=== PATIENT | female | born 1980 | race African-American/Black ===

== ENCOUNTER 2022-09-17 14:14 | Emergency (ER) | payer SELFPAY ==
[~2022-09-17] VITALS: Ht 154.9 cm; Wt 45.0 kg
[2022-09-17 14:21] VITALS: BP 110/70; PULSE 92; RESP 16; TEMP 97.8; O2SAT 98
== END 2022-09-17 15:46 | disposition left against medical advice (07) ==
LOC: ER 15:14
DX: Z53.21 Procedure and treatment not carried out due to patient leaving prior to being seen by health care provider (principal)
CPT/HCPCS: 99281